=== PATIENT | male | born 1970 | race African-American/Black ===

== ENCOUNTER 2017-12-14 10:44 | Emergency (ER) | payer MEDICAID ==
[~2017-12-14 10:44] MED LIST: CEPHALEXIN 500 MG CAP PO SCH; OFLOXACIN 0.3% 5ML OPHT DROPS LEFTEYE SCH
[2017-12-14] MEDS ORDERED: FLUORESCEIN SODIUM 1 MG STRIP OP ONE (11:54)
[2017-12-14] MEDS ORDERED: PROPARACAINE 0.5% 15 ML OPHT DROP ONE (11:54)
[2017-12-14 12:43] VITALS: BP 112/78
--- NOTE | 2017-12-14 12:43 | EDPHY ---
H & P Smoking Status: Current every day smoker Time Seen by Provider: 12/14/17 11:29 HPI/ROS: CHIEF COMPLAINT: Right eye pain HISTORY OF PRESENT ILLNESS: 47-year-old male presents to the emergency department with pain in his right eye. The patient states that started as mild irritation about 1 week ago and became acutely worse especially in the last 24 hr. He woke up this morning with significant swelling to the right upper eyelid. He denies any known trauma or injury. He states that he is able to see out of his eye. He denies any symptoms in the left eye. Denies headache. He has had drainage from the right eye. ROS: Denies fevers, chills, double vision, blurry vision. (Tami Camposrina Daren) Past Medical/Surgical History: Depression (Tami Campossanto Mercedes) Social History: Homeless (Maria G Campos) Physical Exam: Visual Acuity: Not obtained Pupils:equal round and reactive to light EOMI Lids: Edema noted to the right upper eyelid. Skin: no proptosis, no periorbital erythema or swelling, no vesicles Conjunctivae: Injection and discharge noted in the right eye. Cornea: Alcaine and fluorescein drops instilled into the right eye. Under slit -lamp examination the patient had what appeared to be a central corneal ulcer. No evidence of retained foreign body noted. Anterior chamber:normal, no hyphema or hypopyon (Maria G Campos) Constitutional: Initial Vital Signs Temperature (C) 36.7 C 12/14/17 10:45 Heart Rate 74 12/14/17 10:45 Respiratory Rate 18 12/14/17 10:45 Blood Pressure 116/69 12/14/17 10:45 O2 Sat (%) 96 12/14/17 10:45 O2 Delivery Mode Room Air Allergies/Adverse Reactions: acetaminophen [From Tylenol] Allergy (Verified 12/14/17 10:47) bee venom protein (honey bee) Allergy (Verified 12/14/17 10:47) ibuprofen [From Motrin] Allergy (Verified 12/14/17 10:47) trazodone Allergy (Verified 12/14/17 10:47) ziprasidone [From Geodon] Allergy (Verified 12/14/17 10:47) Home Medications: Medication Instructions Recorded Azithromycin [Zithromax tab 250 mg] 250 mg PO DAILY #6 tab 04/02/11 Ibuprofen 600 mg PO Q6H PRN #20 tablet 04/02/11 Ondansetron Odt [Zofran Odt 4 mg 4 mg PO Q4PRN PRN #6 tab 04/02/11 (*)] Ziprasidone HCl [Geodon] 80 mg PO DAILY 04/02/11 traZODone [traZODONE 100MG (*)] 100 mg PO DAILY 04/02/11 Cephalexin [Keflex] 500 mg PO QID #28 cap 12/14/17 Ofloxacin 0.3% [Ocuflox] 1 - 2 drops LEFTEYE QID 7 Days btl 12/14/17 MDM/Departure - MDM ED Course/Re-evaluation: Clinically I think this patient likely has a corneal ulcer. I was also concerned about possible periorbital cellulitis. The patient was seen examined by Dr. Raffaele Manzanares as well. I spoke with the on-call industrial boilermaker, Dr. Ronaldo Rock, who recommended Ocuflox drops, oral Keflex, and he would see him in the office tomorrow. integration project manager was helping to arrange this follow-up appointment. His medications were filled through the [facility] and given to him in the emergency department. The patient was given strict instructions to return if he developed any other visual complaints, fever, or any other concerns. (Maria G Campos) I also saw this patient while he was in the emergency department at the request of the PA. I reviewed the history with the patient as he has had eye irritation that has progressively gotten worse over the 1 week. Exam shows swelling to the upper eyelid. Very red conjunctiva. No obvious drainage. I further discussed the case with the PA. I agree with treatment plan and management (Raffaele Manzanares) - Depart Disposition: Home, Routine, Self-Care Clinical Impression: Conjunctivitis, Corneal ulcer Condition: Good Instructions: Corneal Ulcer (ED), Conjunctivitis (ED) Additional Instructions: Ocuflox drops 4 times daily for 1 week. Keflex as directed for 1 week. Follow-up with Dr. Ronaldo Rock, industrial boilermaker, tomorrow to recheck in his office. Call to arrange follow-up appointment. Prescriptions: Cephalexin [Keflex] 500 mg PO QID #28 cap Ofloxacin 0.3% [Ocuflox] 1 - 2 drops LEFTEYE QID 7 Days btl Referrals: Ronaldo Rock MD [Medical Doctor] - 1 day without fail (Manager Military on- call)
--- NOTE | 2017-12-14 15:07 | ASMTCMCOM ---
CM Note CM Note Notes: Pt presented to the ED via EMS for right eye irritation. Pt coming from the [facility]. Spoke w/pt and he is requesting assistance w/returning to [facility]; Medicaid cab arranged (CONF # [id number]). Pt also provided his prescription oral antibiotics and eye drops via [facility] (total cost of both =$14.49) since it is a Friday and pt states he would not be able to get to a pharmacy today and have them filled. Pt's DC instructions include following up w/Dr Rock w/ [facility]. ED Provider spoke w/Dr Rock and he is able to see the patient tomorrow. Pt understands he needs to call first thing tomorrow morning to schedule the appt. Pt states his CM at [facility] is Lisa and he states he will ask her for assistance w/getting to the appt tomorrow. Pt has been referred to [facility] in the past. This CM to follow-up w/PC re:outpatient follow-up. Date Signed: 12/14/2017 03:06 PM Electronically Signed By:Sandra Lawrence RN
--- NOTE | 2017-12-15 14:59 | ASMTCMCOM ---
CM Note CM Note Notes: Followed up with [facility]; pt made it to his 1pm appt today w/Dr. Arnold. Followed up w/[facility] and pt has an appt w/them tomorrow at 09:20am. Their homeless outreach RN, Carmelita, has been involved per PC notes. CM available for further assistance if needed. Date Signed: 12/15/2017 02:58 PM Electronically Signed By:Sandra Lawrence RN
== END 2017-12-14 13:26 | disposition home or self-care (01) ==
LOC: EDUNIT#
DX: H16.001 Unspecified corneal ulcer, right eye (principal); H10.9 Unspecified conjunctivitis

== ENCOUNTER 2017-12-23 14:45 | Emergency (ER) | payer MEDICAID ==
--- NOTE | 2017-12-23 15:11 | EDPHY ---
H & P Stated Complaint: bumps on L hip and LE Time Seen by Provider: 12/23/17 15:06 HPI/ROS: HPI: This is a 47-year-old male who presents with Chief Complaint: bumps on L hip and LE Location: Left hip and left leg, right side of abdomen Quality: Rash Duration: 2-3 days Signs and Symptoms: no fever, no nausea, no vomiting, no diarrhea, no urinary symptoms, no chest pain, no shortness of breath, no wheezing, no cough, no sore throat, no neck stiffness, no joint pain, no swollen glands, no ear pain, no rash, + pruritus Timing: Gradually worse Severity: [id number] Context: Patient lives in a homeless intermediate, he reports that the shower is broken presents with 2-3 day history of gradually spreading rash on both of his legs and right side of his abdomen. Reports that is extremely pruritic and worse at night. Modifying Factors: None Comment: ROS: A comprehensive 10 system review of systems is otherwise negative aside from elements mentioned in the history of present illness. MEDICAL/SURGICAL/SOCIAL HISTORY: Medical history: Depression Surgical history: Denies Social history: Current every day smoker. Family history noncontributory. CONSTITUTIONAL: Middle-aged male, awake and alert, no obvious distress HEENT: Atraumatic and normocephalic, PERRL, EOMI. Nares patent; no rhinorrhea; no nasal mucosal edema. Tympanic membranes clear. Oropharynx clear, no exudate and moist pink mucosa. Airway patent. No lymphadenopathy. No meningismus. Cardiovascular: Normal S1/S2, regular rate, regular rhythm, without murmur rub or gallop. PULMONARY/CHEST: Symmetrical and nontender. Clear to auscultation bilaterally. Good air movement. No accessory muscle usage. ABDOMEN: Soft, nondistended, nontender, no rebound, no guarding, no peritoneal signs, no masses or organomegaly. No CVAT. EXTREMITIES: 2/2 pulses, strength 5/5, no deformities, no clubbing, no cyanosis or edema. NEUROLOGICAL: no focal neuro deficits. GCS 15. SKIN: Warm and dry, white scaly annular patches noted on bilateral upper extremities and right side of abdomen; no vesicles; no petechiae. no erythema. no rash. Good capillary refill. Source: Patient Exam Limitations: No limitations - Personal History Current Tetanus/Diphtheria Vaccine: Yes Current Tetanus Diphtheria and Acellular Pertussis (TDAP): Yes - Medical/Surgical History Hx Asthma: No Hx Chronic Respiratory Disease: No Hx Diabetes: No Hx Cardiac Disease: No Hx Renal Disease: No Hx Cirrhosis: No Hx Alcoholism: No Hx HIV/AIDS: No Hx Splenectomy or Spleen Trauma: No Other PMH: depression - Social History Smoking Status: Current every day smoker Constitutional: Initial Vital Signs Temperature (C) 36.9 C 12/23/17 15:01 Heart Rate 92 12/23/17 15:01 Respiratory Rate 16 12/23/17 15:01 Blood Pressure 106/75 12/23/17 15:01 O2 Sat (%) 95 12/23/17 15:01 O2 Delivery Mode Room Air Allergies/Adverse Reactions: acetaminophen [From Tylenol] Allergy (Verified 12/23/17 15:00) bee venom protein (honey bee) Allergy (Verified 12/23/17 15:00) ibuprofen [From Motrin] Allergy (Verified 12/23/17 15:00) trazodone Allergy (Verified 12/23/17 15:00) ziprasidone [From Geodon] Allergy (Verified 12/23/17 15:00) Home Medications: Medication Instructions Recorded Permethrin 5% [Elimite 5%] 1 beth TOP ONCE #60 gm 12/23/17 Prozac 10 MG (*) 12/23/17 Medical Decision Making ED Course/Re-evaluation: No clear signs of secondary infection. Appears to be bedbug related but will treat for scabies due to living in a homeless intermediate. This patient was seen under the supervision of my secondary supervising physician. I evaluated care for this patient independently. Discussed this patient with Dr. Darling. Differential Diagnosis: Differential diagnosis includes but is not limited to shingles, bedbugs, scabies , cellulitis. Departure - Departure Disposition: Home, Routine, Self-Care Clinical Impression: Bed bug bite Qualifiers: Encounter type: initial encounter Qualified Code(s): W57.XXXA - Bitten or stung by nonvenomous insect and other nonvenomous arthropods, initial encounter Condition: Good Instructions: Bed Bugs (ED) Additional Instructions: Please wash all clothes and linens in hot soapy water. Eliminate site of infestation like mattress and furniture. Apply permethrin cream-Thoroughly massage cream (30 g for average adult) from head to soles of feet; leave on for 8 to 14 hours before removing (shower or bath). Take Benadryl 25-50 mg every 4-6 hours as needed for itching. Referrals: [facility],. [Clinic] - As per Instructions Prescriptions: Permethrin 5% [Elimite 5%] 1 beth TOP ONCE #60 gm
[2017-12-23 15:23] VITALS: BP 112/78
== END 2017-12-23 15:23 | disposition home or self-care (01) ==
DX: S81.859A Open bite, unspecified lower leg, initial encounter (principal); W57.XXXA Bitten or stung by nonvenomous insect and other nonvenomous arthropods, initial encounter; Z59.0 Homelessness; Y92.89 Other specified places as the place of occurrence of the external cause; F17.210 Nicotine dependence, cigarettes, uncomplicated

== ENCOUNTER 2018-04-14 13:56 | Emergency (ER) | payer MEDICAID ==
[2018-04-14] MEDS ORDERED: OLANZapine DISINTEGR 5 MG TAB PO ONE (14:01)
--- NOTE | 2018-04-14 14:06 | EDPHY ---
H & P Source: Patient, RN/MD, EMS Exam Limitations: Clinical condition - Medical/Surgical History Hx Asthma: No Hx Chronic Respiratory Disease: No Hx Diabetes: No Hx Cardiac Disease: No Hx Renal Disease: No Hx Cirrhosis: No Hx Alcoholism: No Hx HIV/AIDS: No Hx Splenectomy or Spleen Trauma: No Other PMH: depression - Social History Smoking Status: Current every day smoker Time Seen by Provider: 04/14/18 13:59 HPI/ROS: HPI: This is a 47-year-old male who presents with Chief Complaint: M1 hold Location: psych Quality: M1 hold Duration: Unknown Signs and Symptoms: no auditory hallucinations, + visual hallucinations, + suicidal ideation with a plan,+ homicidal ideation, no paranoia Timing: Acute on chronic Severity: Severe Context: Patient has a history bipolar schizoaffective disorder presents from [facility] on M1 hold. Patient sources of sexual suicidal ideation homicidal ideation with plan and intent to harm himself involving walking traffic and thoughts of wanting to slit others throat. Patient sources paranoia and visual hallucinations. Patient appears he would be unable to prevent himself from acting on suicidal ideations. Patient is taking Seroquel, Remeron. Modifying Factors: Psychiatric medications Comment: ROS: A comprehensive 10 system review of systems is otherwise negative aside from elements mentioned in the history of present illness. MEDICAL/SURGICAL/SOCIAL HISTORY: Medical history: bipolar schizoaffective disorder Surgical history: Denies Social history: Smoker. Denies drug use. Family history noncontributory. CONSTITUTIONAL: Well-developed, well-nourished middle-aged black male, knee, tidy, cooperative, awake and alert, no obvious distress HEENT: Atraumatic and normocephalic, PERRL, EOMI. Wears glasses. Nares patent ; no rhinorrhea; no nasal mucosal edema. Tympanic membranes clear. Oropharynx clear, no exudate and moist pink mucosa. Airway patent. No lymphadenopathy. No meningismus. Cardiovascular: Normal S1/S2, regular rate, regular rhythm, without murmur rub or gallop. PULMONARY/CHEST: Symmetrical and nontender. Clear to auscultation bilaterally. Good air movement. No accessory muscle usage. ABDOMEN: Soft, nondistended, nontender, no rebound, no guarding, no peritoneal signs, no masses or organomegaly. No CVAT. EXTREMITIES: 2/2 pulses, strength 5/5, no deformities, no clubbing, no cyanosis or edema. NEUROLOGICAL: no focal neuro deficits. GCS 15. SKIN: Warm and dry, no erythema. no rash. Good capillary refill. PSYCH: fair eye contact, + flight of ideas, + tangential disorganized thought process, poor insight and judgment, no auditory hallucinations, + visual hallucinations, + suicidal ideation with a plan,+ homicidal ideation, no paranoia (Tamiko Jasso) Constitutional: Initial Vital Signs Temperature (C) 36.9 C 04/14/18 14:04 Heart Rate 78 04/14/18 14:04 Respiratory Rate 16 04/14/18 14:04 Blood Pressure 124/83 H 04/14/18 14:04 O2 Sat (%) 98 04/14/18 14:04 O2 Delivery Mode Room Air Allergies/Adverse Reactions: acetaminophen [From Tylenol] Allergy (Verified 12/23/17 15:00) bee venom protein (honey bee) Allergy (Verified 12/23/17 15:00) ibuprofen [From Motrin] Allergy (Verified 12/23/17 15:00) trazodone Allergy (Verified 12/23/17 15:00) ziprasidone [From Geodon] Allergy (Verified 12/23/17 15:00) Home Medications: Medication Instructions Recorded Prozac 10 MG (*) 12/23/17 Mirtazapine [Remeron] 04/14/18 Seroquel 04/14/18 Medical Decision Making ED Course/Re-evaluation: 1400: Agree with M1 hold as patient is gravely disabled. Labs and UDS ordered. Zyprexa 10 mg given 1448: Labs reviewed and show elevated white blood cell count but no other abnormality. Urine drug screen positive for cocaine. Medically clear for mental health evaluation. 1627: End of shift. Signed over to Dr. Britton pending mental health evaluation. Suspect will need placement. Spoke with [facility] who reports he will not be evaluated until after 7:00 p.m. Patient is currently calm sleeping soundly for the last 1 hr. This patient was seen under the supervision of my secondary supervising physician. Discussed this patient with Dr. Britton. (Tamiko Jasso) I took over care of this patient at 3:00 p.m.. This patient is on an M1 hold. The patient has a history of schizoaffective disorder and bipolar disorder. He is currently psychotic with suicidal and homicidal ideations. He was just given 10 mg of oral Zyprexa. He was cocaine positive on his urine drug screen. He is to be evaluated by Behavioral Health after 7:00 p.m.. 9:00 p.m., the patient is to be evaluated by Behavioral Health again in the morning. The patient's remaining emergency department course under my care has been uneventful. The patient's care was turned over to Dr. Maximus Mcelroy at this time. (Letitia Britton) Patient's care set at 9:20 a.m.. Awaiting evaluation morning. (Maximus Mcelroy) Care was turned over to me at 7:00 a.m.. I saw the patient at 7:05 a.m.. Patient has no complaints other than wondering when breakfast will be served. He exhibits no signs or symptoms of infection. I reviewed his labs and see his toxicology screen was positive for cocaine. The plan is to re-evaluate in the morning. I also see that his initial CBC showed an elevated white blood cell count. As he does not exhibit signs of infection I suspect that this is likely due to cocaine use. We will repeat the CBC and patient will be re-evaluated this morning 8:15 a.m. patient has been re-evaluated. It is felt that the patient is appropriate for outpatient management. He has been given resources for mental health follow-up. (Raffaele Manzanares) Differential Diagnosis: Differential diagnosis includes but is not limited to major depression, anxiety disorder, schizophrenia, bipolar disorder, intoxicant use, suicidal ideation, psychosis, vesna. (Tamiko Jasso) Patient has recently had hospitalization. He was provided with resources at discharge. He came to [facility]. He was placed on a mental health hold. It is felt that he is appropriate for outpatient management (Raffaele Manzanares) Other Provider: [address] Mcelroy pending mental health re-evaluation in the morning. 0700 Patient signed out to Dr. Manzanares pending mental health re-evaluation. There been no issues during my care this patient overnight. (Deon Parmar) - Data Points Laboratory Results: Laboratory Results 04/15/18 07:40 04/14/18 14:20 04/15/18 07:40 WBC 10.84 10^3/uL H 10^3/uL (3.80-9.50) RBC 5.48 10^6/uL 10^6/uL (4.40-6.38) Hgb 15.0 g/dL g/dL (13.7-17.5) Hct 46.3 % % (40.0-51.0) MCV 84.5 fL fL (81.5-99.8) MCH 27.4 pg L pg (27.9-34.1) MCHC 32.4 g/dL g/dL (32.4-36.7) RDW 16.4 % H % (11.5-15.2) Plt Count 378 10^3/uL 10^3/uL (150-400) MPV 9.4 fL fL (8.7-11.7) Neut % (Auto) 43.4 % % (39.3-74.2) Lymph % (Auto) 39.6 % % (15.0-45.0) Benson % (Auto) 12.1 % % (4.5-13.0) Eos % (Auto) 2.9 % % (0.6-7.6) Baso % (Auto) 0.7 % % (0.3-1.7) Nucleat RBC Rel Count 0.0 % % (0.0-0.2) Absolute Neuts (auto) 4.71 10^3/uL 10^3/uL (1.70-6.50) Absolute Lymphs (auto) 4.29 10^3/uL H 10^3/uL (1.00-3.00) Absolute Monos (auto) 1.31 10^3/uL H 10^3/uL (0.30-0.80) Absolute Eos (auto) 0.31 10^3/uL 10^3/uL (0.03-0.40) Absolute Basos (auto) 0.08 10^3/uL 10^3/uL (0.02-0.10) Absolute Nucleated RBC 0.00 10^3/uL 10^3/uL (0-0.01) Immature Gran % 1.3 % H % (0.0-1.1) Immature Gran # 0.14 10^3/uL H 10^3/uL (0.00-0.10) Medications Given: Discontinued Medications Diphenhydramine HCl (Benadryl) 25 mg PO EDNOW ONE Stop: 04/15/18 07:49 Last Admin: 04/15/18 07:54 Dose: 25 mg Olanzapine (Zyprexa Zydis) 10 mg PO EDNOW ONE Stop: 04/14/18 14:02 Last Admin: 04/14/18 14:23 Dose: 10 mg Departure - Departure Disposition: Home, Routine, Self-Care Clinical Impression: Paranoid schizophrenia, Homicidal ideations, Verbalizes suicidal thoughts, Cocaine use Schizoaffective psychosis Qualifiers: Schizoaffective disorder type: bipolar Qualified Code(s): F25.0 - Schizoaffective disorder, bipolar type Condition: Good Instructions: Suicide Prevention (ED) Additional Instructions: Follow-up with resources provided by mental health Return for further thoughts of harming yourself or others Referrals: Savana Garrett [Primary Care Provider] - As per Instructions [facility] [Outside] - As per Instructions
[2018-04-14 14:31] LABS: PLATELET COUNT 388 10^3/uL (150-400)
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
[2018-04-15] MEDS ORDERED: diphenhydrAMINE 25 MG CAP PO ONE (07:48)
[2018-04-15 08:04] LABS: PLATELET COUNT 378 10^3/uL (150-400)
--- NOTE | 2018-04-15 09:21 | ASMTTCLDSP ---
TLC Discharge Disposition Disposition: Answers: Discharge Disposition Notes: Notes: Pt stated commitment or ability to keep self safe, denied thoughts of self harm or harm to others. Pt expressed a desire to f/u with [facility] and was provided with cab voucher to [facility]. Pt was given local hotline information and [facility] brochure After an Attempt and encouraged to follow up with [facility]. Discharge Concerns/Recommendations: Notes: In consultation with [facility] ED physician, Raffaele Manzanares MD, Dr. Manzanares concurred that pt does not appear to meet 27-65 criteria requiring psychiatric hospitalization as pt does not appear to be an imminent risk of harm to self/others/gravely disabled due to a mental illness condition. Dr. Manzanares provided verbal order read back vacating M1 hold at 0915 hrs. Was patient given the Answers: Not applicable Inpatient Behavioral Health Prohibited Belongings List while in the ED? Psychiatrist vacating M1 Raffaele Manzanares MD Hold: Date and time M1 hold 04/15/2018 09:15 AM vacated (time format is hh:mm): Type of Hold: Answers: M1/72-hour Hold Hold initiated by: Answers: Other Notes: [facility] Date Signed: 04/15/2018 09:20 AM Electronically Signed By:Jovanny Oneal
[2018-04-15 09:25] VITALS: BP 118/69
--- NOTE | 2018-04-21 23:16 | CPEKG ---
Test Reason : OPEN Blood Pressure : / mmHG Vent. Rate : 094 BPM Atrial Rate : 094 BPM P-R Int : 132 ms QRS Dur : 075 ms QT Int : 353 ms P-R-T Axes : 065 099 044 degrees QTc Int : 442 ms Sinus rhythm Borderline right axis deviation Confirmed by Sola Lynn ([id number]) on 04/21/2018 11:16:10 PM Referred By: Confirmed By:Sola Lynn
== END 2018-04-15 09:23 | disposition home or self-care (01) ==
LOC: EDUNIT#
PROC: GZ11ZZZ Psychological Tests, Personality and Behavioral (ICD-10-PCS; principal; 2018-04-14)
DX: R45.851 Suicidal ideations (principal); R45.850 Homicidal ideations; F25.0 Schizoaffective disorder, bipolar type; F14.90 Cocaine use, unspecified, uncomplicated
CPT/HCPCS: 80305; G0480

== ENCOUNTER 2018-04-15 19:56 | Emergency (ER) | payer MEDICAID ==
[2018-04-15 20:01] VITALS: BP 107/63
--- NOTE | 2018-04-15 20:23 | EDPHY ---
H & P Stated Complaint: CP, SOB, Back Pain, L knee Pain Time Seen by Provider: 04/15/18 20:09 - Personal History Current Tetanus Diphtheria and Acellular Pertussis (TDAP): Yes - Medical/Surgical History Hx Asthma: No Hx Chronic Respiratory Disease: No Hx Diabetes: No Hx Cardiac Disease: No Hx Renal Disease: No Hx Cirrhosis: No Hx Alcoholism: No Hx HIV/AIDS: No Hx Splenectomy or Spleen Trauma: No Other PMH: depression - Social History Smoking Status: Current every day smoker Constitutional: Initial Vital Signs Temperature (C) 36.9 C 04/15/18 19:58 Heart Rate 96 04/15/18 19:58 Respiratory Rate 18 04/15/18 19:58 Blood Pressure 107/63 04/15/18 19:58 O2 Sat (%) 93 04/15/18 19:58 O2 Delivery Mode Room Air Allergies/Adverse Reactions: acetaminophen [From Tylenol] Allergy (Verified 04/15/18 20:01) bee venom protein (honey bee) Allergy (Verified 04/15/18 20:01) ibuprofen [From Motrin] Allergy (Verified 04/15/18 20:01) trazodone Allergy (Verified 04/15/18 20:01) ziprasidone [From Geodon] Allergy (Verified 04/15/18 20:01) Home Medications: Medication Instructions Recorded Prozac 10 MG (*) 12/23/17 Mirtazapine [Remeron] 04/14/18 Seroquel 04/14/18 Medical Decision Making ED Course/Re-evaluation: CHIEF COMPLAINT: Back pain, knee pain HISTORY OF PRESENT ILLNESS: This patient is a 47 year old male with history of bipolar disorder, schizoaffective disorder. He presents today for a checkup of his chronic back and knee pain. He is concerned regarding muscle spasms in his back which cause difficulty breathing. They begin in his mid back and radiate laterally. He endorses left knee pain as well and has followed up with physical rehabilitation services in the past. He states he has an appointment with physical therapy this Friday. He denies any acute trauma. No recent illness. No fever, nausea, vomiting, diarrhea, neurologic deficits, incontinence, or other associated symptoms. REVIEW OF SYSTEMS: A comprehensive 10 system review of systems is otherwise negative aside from elements mentioned in the history of present illness and medical decision making. PHYSICAL EXAM: HR, BP, O2 Sat, RR. Temp noted General Appearance: Alert, well hydrated, appropriate, and non-toxic appearing. Head: Atraumatic without scalp tenderness or obvious injury Neck: Supple, 2+ carotid upstroke, nontender, no lymphadenopathy. Respiratory: No retractions, no distress, no wheezes, and no accessory muscle use. Lungs are clear to auscultation bilaterally. Cardiovascular: Regular rate and rhythm, no murmurs, rubs, or gallops. Bilateral carotid, radial, dorsalis pedis, and posterior tibial pulses intact. Good capillary refill all extremities. Gastrointestinal: Abdomen is soft, nontender, non-distended. Musculoskeletal: Normal active ROM of all extremities, atraumatic. Neurological: Alert, appropriate, and interactive. Nonfocal neuro exam. Skin: No rashes, good turgor, no nodules on palpation. Past medical history: Bipolar disorder, schizoaffective disorder Past surgical history: Noncontributory Family history: Noncontributory Social history: Currently staying in custodial home. DIFFERENTIAL DIAGNOSIS: Includes but not limited to osseous injury, meniscus tear, ligamentous strain, ligamentous tear, disc herniation. MEDICAL DECISION MAKIN47 year old male presents with concerns regarding his chronic back and left knee pain. On exam, he has some subscapularis tightness as well as degenerative changes in left knee and evidence of arthritis. He does not have any acute complaints today and denies any recent trauma. He is comfortable following up with physical therapy as scheduled on Friday. Plan to discharge home in good condition. Follow up and return precautions discussed. He is comfortable with this plan. Departure - Departure Disposition: Home, Routine, Self-Care Clinical Impression: Back pain Qualifiers: Back pain location: thoracic back pain Chronicity: unspecified Back pain laterality: bilateral Qualified Code(s): M54.6 - Pain in thoracic spine Left knee pain Qualifiers: Chronicity: chronic Qualified Code(s): M25.562 - Pain in left knee Condition: Good Instructions: Knee Pain (ED), Back Pain (ED) Additional Instructions: Follow up for your physical therapy appointment on Friday as scheduled. Follow up with your primary care provider this week for further concerns. Referrals: Savana Garrett [Primary Care Provider] - As per Instructions Report Scribed for: Ok Darling Report Scribed by: Jessa Sanz Date of Report: 04/15/18 Time of Report: 20:40
== END 2018-04-15 20:31 | disposition home or self-care (01) ==
DX: M54.6 Pain in thoracic spine (principal); M25.569 Pain in unspecified knee